=== PATIENT | female | born 1995 | race Caucasian/White ===

== ENCOUNTER 2017-07-18 20:44 | Emergency (ER) | payer SELFPAY ==
[2017-07-18 20:52] VITALS: BP 120/72
--- NOTE | 2017-07-18 21:04 | UC ---
Throat Pain/Nasal Oliver HPI - HPI Summary HPI Summary: nasal congestion x 2 days + sinus pain and pressure , pnd no fever, no chills + cough - History of Current Complaint Chief Complaint: UCRespiratory Stated Complaint: SINUSES Time Seen by Provider: 07/18/17 20:56 Hx Obtained From: Patient Hx Last Menstrual Period: 06/25/17 ?: No Onset/Duration: Gradual Onset, Lasting Days - 2 Severity: Moderate Cough: Nonproductive Associated Signs & Symptoms: Positive: Sinus Discomfort, Nasal Discharge. Negative: Dysphagia, FB Sensation, Drooling, Wheezing, Hoarseness, Fever, Vomiting, Rash - Allergies/Home Medications Allergies/Adverse Reactions: Allergies Allergy/AdvReac Type Severity Reaction Status Date / Time No Known Allergies Allergy Verified 07/18/17 20:52 Home Medications: Home Medications NK [No Home Medications Reported] 07/18/17 [History Confirmed 07/18/17] PMH/Surg Hx/FS Hx/Imm Hx Previously Healthy: Yes - Surgical History Surgical History: Yes Surgery Procedure, Year, and Place: wisdom teeth - Family History Known Family History: Negative: Diabetes - Social History Alcohol Use: None Substance Use Type: None Smoking Status (MU): Never Smoked Tobacco - Immunization History Most Recent Influenza Vaccination: no Review of Systems Constitutional: Negative Skin: Negative Eyes: Negative ENT: Sore Throat, Ear Ache, Nasal Discharge, Sinus Congestion, Sinus Pain/ Tenderness Respiratory: Cough Cardiovascular: Negative Gastrointestinal: Negative Is Patient Immunocompromised?: No All Other Systems Reviewed And Are Negative: Yes Physical Exam Triage Information Reviewed: Yes Appearance: Well-Appearing, No Pain Distress, Well-Nourished Vital Signs: Initial Vital Signs Temp 98.6 F 07/18/17 20:47 Pulse 92 07/18/17 20:47 Resp 16 07/18/17 20:47 BP 120/72 07/18/17 20:47 Pulse Ox 100 07/18/17 20:47 Vital Signs Reviewed: Yes Eyes: Positive: Conjunctiva Clear ENT: Positive: Normal ENT inspection, Hearing grossly normal, Pharynx normal, Nasal congestion, Nasal drainage, TMs normal. Negative: Tonsillar swelling, Tonsillar exudate Neck exam: Normal Neck: Positive: Supple, Nontender, No Lymphadenopathy Respiratory: Positive: Chest non-tender, Lungs clear, Normal breath sounds Cardiovascular: Positive: RRR, No Murmur, Pulses Normal Skin Exam: Normal Throat Pain/Nasal Course/Dx - Differential Dx/Diagnosis Provider Diagnoses: URI Discharge - Discharge Plan Condition: Stable Disposition: HOME Patient Education Materials: Upper Respiratory Infection (ED) Referrals: Non Staff,Doctor [Primary Care Provider] - If Needed Additional Instructions: viral illness cont. with rest increase fluid, Tylenol as needed for pain and fever use OTC Flonase 2 spray each nostril daily
== END 2017-07-18 21:07 | disposition home or self-care (01) ==
LOC: UCCORT 20:44
DX: J06.9 Acute upper respiratory infection, unspecified (principal)
CPT/HCPCS: 99211; G0463

== ENCOUNTER 2018-12-03 07:40 | Emergency (ER) | payer BC ==
[2018-12-03 07:52] VITALS: BP 125/81
--- NOTE | 2018-12-03 08:04 | ED ---
Throat Pain/Nasal Congestion - HPI Summary HPI Summary: 23 yr old female with the complaint of bilateral eye irritation, drainage, crusting. Onset over the past 24 hours. The patient also complains of runny nose, sore throat and sinus congestion for about 48 hours. no fever or chills. No rash. The patient uses contact lenses, but she has no eye pain, just some itching and yellow crusty drainage. She does not sleep with them in. She denies blur vision. - History of Current Complaint Chief Complaint: UCRespiratory Time Seen by Provider: 12/03/18 07:53 - Allergies/Home Medications Allergies/Adverse Reactions: Allergies Allergy/AdvReac Type Severity Reaction Status Date / Time No Known Allergies Allergy Verified 12/03/18 07:47 PMH/Surg Hx/FS Hx/Imm Hx - Surgical History Surgery Procedure, Year, and Place: wisdom teeth Infectious Disease History: No Infectious Disease History: Denies: Hx Clostridium Difficile, Hx Hepatitis, Hx Human Immunodeficiency Virus (HIV), Hx of Known/Suspected MRSA, Hx Shingles, Hx Tuberculosis, Hx Known/ Suspected VRE, Hx Known/Suspected VRSA, History Other Infectious Disease, Traveled Outside the in Last 30 Days - Family History Known Family History: Negative: Diabetes - Social History Occupation: Employed Full-time Alcohol Use: None Substance Use Type: Reports: None Smoking Status (MU): Never Smoked Tobacco Review of Systems Constitutional: Negative Positive: Drainage. Negative: Photophobia, Blurred Vision Positive: Sore Throat, Nasal Discharge Positive: Cough All Other Systems Reviewed And Are Negative: Yes Physical Exam Triage Information Reviewed: Yes Vital Signs On Initial Exam: Initial Vitals Temp Pulse Resp BP Pulse Ox 98.6 F 99 14 125/81 100 12/03/18 07:47 12/03/18 07:47 12/03/18 07:47 12/03/18 07:47 12/03/18 07:47 Vital Signs Reviewed: Yes Appearance: Positive: Well-Appearing, No Pain Distress Skin: Positive: Warm, Skin Color Reflects Adequate Perfusion Head/Face: Positive: Normal Head/Face Inspection Eyes: Positive: EOMI ENT: Positive: Pharyngeal erythema, Nasal congestion, Nasal drainage, TMs normal Neck: Positive: Nontender Respiratory/Lung Sounds: Positive: Clear to Auscultation, Breath Sounds Present Cardiovascular: Positive: RRR, Murmur Abdomen Description: Negative: Distended Musculoskeletal: Positive: Strength/ROM Intact Neurological: Positive: Sensory/Motor Intact, Alert, Oriented to Person Place, Time, CN Intact II-III, Normal Gait, Speech Normal Psychiatric: Positive: Normal - Sandra Coma Scale Best Eye Response: 4 - Spontaneous Best Motor Response: 6 - Obeys Commands Best Verbal Response: 5 - Oriented Coma Scale Total: 15 Diagnostics - Vital Signs Vital Signs Temp Pulse Resp BP Pulse Ox 12/03/18 07:47 98.6 F 99 14 125/81 100 - Laboratory Lab Statement: Any lab studies that have been ordered have been reviewed, and results considered in the medical decision making process. EENT Course/Dx - Course Course Of Treatment: 23 yr old female with bilateral conjunctivitis. URI symptoms. Rx with sulfa eye drops - Diagnoses Provider Diagnoses: Conjunctivitis Discharge - Sign-Out/Discharge Documenting (check all that apply): Patient Departure All imaging exams completed and their final reports reviewed: No Studies - Discharge Plan Condition: Good Disposition: HOME Prescriptions: Sulfacetamide 10 % OPTH.BRENDA* [Sulamyd 10% Opth*] 1 drop BOTH EYES Q4H #1 btl Patient Education Materials: Conjunctivitis (ED), Upper Respiratory Infection ( ED) Referrals: No Primary Care Phys,NOPCP [Primary Care Provider] - [facility] [Outside] Additional Instructions: throw out the contact lenses, and makeup. Do not use either for a week. Use the antibiotic drops as directed. Use new contact lenses after a week of treatment and your symptoms have completely resolved. - Billing Disposition and Condition Condition: GOOD Disposition: Home
== END 2018-12-03 08:11 | disposition home or self-care (01) ==
LOC: UCCORT 07:40
DX: H10.9 Unspecified conjunctivitis (principal)
CPT/HCPCS: 99212; G0463

== ENCOUNTER 2018-12-17 16:37 | Emergency (ER) | payer BC ==
[2018-12-17 16:54] VITALS: BP 144/67
--- NOTE | 2018-12-17 17:17 | UC ---
Throat Pain/Nasal Oliver HPI - HPI Summary HPI Summary: Patient is a student teaching in a second-grade classroom. Patient states she woke up this morning with sinus congestion. Patient without any fevers or chills. Patient with her ear feeling kind of full and popping. No nausea vomiting. No cough. No postnasal drip. Patient without a history of sinus infections. Patient did not take any isub-hke-adiodmb analgesia or decongestant. Patient states she did get a flu vaccine this year. Patient does notexposed to flu. Patient states she is not . Medications reviewed this visit. - History of Current Complaint Chief Complaint: UCRespiratory Stated Complaint: SINUSES Time Seen by Provider: 12/17/18 17:01 Hx Obtained From: Patient Hx Last Menstrual Period: 12/07/18 Onset/Duration: Sudden Onset Severity: Mild Pain Intensity: 4 Pain Scale Used: 0-10 Numeric Associated Signs & Symptoms: Positive: Sinus Discomfort, Nasal Discharge. Negative: Fever - Allergies/Home Medications Allergies/Adverse Reactions: Allergies Allergy/AdvReac Type Severity Reaction Status Date / Time No Known Allergies Allergy Verified 12/17/18 16:52 Home Medications: Home Medications NK [No Home Medications Reported] 12/17/18 [History Confirmed 12/17/18] PMH/Surg Hx/FS Hx/Imm Hx Previously Healthy: Yes - Surgical History Surgical History: Yes Surgery Procedure, Year, and Place: wisdom teeth - Family History Known Family History: Positive: Non-Contributory Negative: Diabetes - Social History Occupation: Student Lives: Dormitory/Roommates Alcohol Use: None Substance Use Type: None Smoking Status (MU): Never Smoked Tobacco - Immunization History Most Recent Influenza Vaccination: no Review of Systems All Other Systems Reviewed And Are Negative: Yes Constitutional: Positive: Negative Skin: Positive: Negative ENT: Positive: Sinus Congestion, Sinus Pain/Tenderness Respiratory: Positive: Negative Cardiovascular: Positive: Negative Neurovascular: Positive: Negative Musculoskeletal: Positive: Negative Neurological: Positive: Negative Physical Exam - Summary Physical Exam Summary: Vital Signs Reviewed: Yes A+Ox3, no distress Eyes: Conjunctiva Clear, DESIREE. EOM intact and full ENT: Hearing grossly normal TM x 2 clear, turbinates inflammed and boggy, + mild PND, mmoist, uvula midline, no exudate, no erythema Neck: Positive: Supple Respiratory: Positive: No respiratory distress, No accessory muscle use + CTA throughout no w/r Cardiovascular: RRR nl s1, s2 no m/r CBT <2 sec abd soft + BS nt/nd no guarding, no distension Musculoskeletal Exam: MAYOR[place] x 4 without difficulty Strength Intact, ROM Intact Neurological: Positive: Alert, + sensation throughout Psychological: Positive: Normal Response To Family Skin: Positive: no rash, no ecchymosis Triage Information Reviewed: Yes Vital Signs: Initial Vital Signs Temp 97.7 F 12/17/18 16:52 Pulse 84 12/17/18 16:52 Resp 15 12/17/18 16:52 BP 144/67 12/17/18 16:52 Pulse Ox 100 12/17/18 16:52 Throat Pain/Nasal Course/Dx - Course Course Of Treatment: Patient presents to urgent care reporting she woke this morning with sinus pressure. Patient with mild postnasal drip. Patient states he is a popping. No nausea vomiting. No fevers, chills, rashes. Patient is a student dean ascetically caution. Patient has not taken any analgesia or decongestant. Vital signs are stable. On exam patient with sinus congestion. We'll check for flu. If negative will prescribe Flonase. Discussed with patient humidified air, secretion precaution, Motrin and Tylenol. We'll prescribe Augmentin the patient can fill if her symptoms are persistent on . Patient comfortable in agreement with plan. Patient declined offer talk to parents. Pt's BP mildly elevated - f/u with PCP/student health - Differential Dx/Diagnosis Provider Diagnosis: Rhinosinusitis Discharge - Sign-Out/Discharge Documenting (check all that apply): Patient Departure All imaging exams completed and their final reports reviewed: No Studies - Discharge Plan Condition: Stable Disposition: HOME Patient Education Materials: Rhinosinusitis (ED) Referrals: No Primary Care Phys,NOPCP [Primary Care Provider] - [facility] [Outside] Additional Instructions: As discussed, sinus infections can because viruses or bacteria. Because you've only been sick for less than one day it's recommended supportive care initially. - Stay well hydrated. Drink plenty of non-alcoholic, non-caffinated beverages. - Okay to alternate ibuprofen (Advil, Motrin) 600mg and Tylenol 1000mg for pain or fever. Take with food. Do NOT take for more than 4-5 days. - These infections are spread by secretions - do NOT share eating or drinking utensils - clean items you share with other people such as cell phones, computer mouse, TV remote, computer tablets,etc. Once you start to feel better, change your toothbrush and your pillowcase. - get plenty of restful sleep - humidify the air in the room where you sleep - boil water, run a hot steam shower, vaporizer, cups of water by heat register - okay to take over the counter decongestant and cough medication - use nasal spray daily as prescribed - If you continue with symptoms after 72 hours, okay to start antibiotics as prescribed - contact your doctor, student health, or return with questions or concerns - Billing Disposition and Condition Condition: STABLE Disposition: Home
[2018-12-17 17:46] LABS: Influenza A Molecular NEGATIVE (Negative); Influenza B Molecular NEGATIVE (Negative)
== END 2018-12-17 17:54 | disposition home or self-care (01) ==
LOC: UCCORT 16:37
DX: J32.9 Chronic sinusitis, unspecified (principal)
CPT/HCPCS: 99212; G0463